=== PATIENT | female | born 1960 | race Caucasian/White ===

== ENCOUNTER → 2020-10-21 | Outpatient (CLI) | payer OTHER ==
--- NOTE | ~2020-10-21 | OP ---
[address] [address] OPERATIVE REPORT Name: ANTHONY BRITTON Room: [facility] MARIBEL JorgensenHenry.#: [id number] Admission: 10/21/20 Attend Phys: Ankur Gotti DO Discharge: Date of : 60 Report #: [id number] THIS REPORT FOR: cc: Rhonda Becerril Mischelle RNP Tucker, J Tyler DO ~ DOC #: [id number] Eliot Woods DO DATE OF SURGERY: 10/21/2020 TIME: 1200. SURGEON: Ankur Gtoti DO. LOGGING CREW FOREMAN: Eliot Woods DO PREOPERATIVE DIAGNOSIS: Left carpal tunnel syndrome. POSTOPERATIVE DIAGNOSIS: Left carpal tunnel syndrome. OPERATION PERFORMED: Left carpal tunnel release. INDICATIONS: The patient is a 60-year-old female who has been struggling with numbness and tingling in the median nerve distribution for greater than 3 months. 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 She has attempted night splinting and NSAID therapy as well as home exercises and activity modifications with no substantial relief. She has undergone an EMG study, which is confirmatory for moderate to severe compression of the median nerve at the level of the carpal tunnel of the left upper extremity. The risks, indications, benefits, and alternatives to open carpal tunnel release which have all been discussed preoperatively with the patient. These risks include but are not limited to pain, infection, neurovascular injury, persistent paresthesias, incomplete release, need for repeat surgery, hypertrophic scar formation causing neural compression, inability to return to prior functional levels, tourniquet pain, myocardial infarction, myocardial arrhythmia, stroke, DVT/PE, , as well as any and all risks attributable to general anesthesia. The patient verbalizes understanding of these risks as described and consents to proceeding with surgical operation. Informed consent was signed by the patient and placed in patient's chart. DESCRIPTION OF PROCEDURE: The patient was seen in the preoperative suite and consent obtained and the correct operative extremity was marked prior to being taken back to the operative suite. She was taken back and general anesthesia was induced after she was transferred onto a well-padded operative table. The patient's left upper extremity was prepped and draped in standard sterile fashion. A surgical timeout was performed indicating the correct patient, [place] [address] OPERATIVE REPORT Name: ANTHONY BRITTON Room: [facility] MARIBEL Guevara#: [id number] Admission: 10/21/20 Attend Phys: Ankur Gotti DO Discharge: Date of : 60 Report #: [id number] operation to be performed, operative extremity, as well as identifying all in attendance. All present in the operative suite where in agreement with the procedure as discussed. An Esmarch was used to exsanguinate the left upper extremity and a tourniquet was inflated to 250 mmHg. A 15 blade scalpel was used to make a skin incision at the level of the skin overlying the transverse carpal ligament. Dissection was carried down to the level of the transverse carpal ligament and a small lamin was made in the ligament with a 15 blade scalpel. Scissors were then used to continue the transection of the transverse carpal ligament both distally and proximally being sure to avoid any neurovascular structures. Following confirmation of complete release both distally and proximally, the surgical field was thoroughly irrigated. The skin was reapproximated using interrupted simple and horizontal mattress sutures with 4-0 nylon. The surgical site was dressed with Xeroform gauze, Kerlix, and Naun wrap. The tourniquet was deflated for a total tourniquet time 14 minutes. All sponge and instrument counts were correct x 2. Estimated blood loss 10 mL. INTRAOPERATIVE FINDINGS: Thickened transverse carpal ligament. The patient was awoken from general anesthesia after she was transferred off the operative table on to the PACU cart and to PACU in stable condition. I attest that Dr. Gotti was present in the operative suite for all critical parts of the procedure. Ankur Gotti DO [facility] By: [id number] Eliot Woods DO /nt
[2020-10-21 10:42] LABS: POTASSIUM 4.6 mmol/L (3.5-5.1)
== END ==
LOC: M.LAB 10:12
PROVIDERS: ATTEND Orthopaedic Surgery
DX: E11.9 Type 2 diabetes mellitus without complications (principal); E87.6 Hypokalemia; Z20.822 Contact with and (suspected) exposure to COVID-19